=== PATIENT | male | born 1995 | race Caucasian/White ===

== ENCOUNTER 2020-01-10 21:26 | Emergency (ER) | payer OTHER ==
[~2020-01-10] VITALS: Ht 167.6 cm; Wt 99.1 kg
[2020-01-10 22:00] LABS: BASO # 0.1 10^3/uL (0.0-0.2); BASO % 0.6 % (0.0-1.0); EOS # 0.1 10^3/uL (0.0-0.5); EOS % 0.8 % (0.0-3.0); HEMATOCRIT 43.3 % (42.0-52.0); HEMOGLOBIN 14.9 g/dl (13.5-17.5); LYMPH % 27.7 % (24.0-44.0); MEAN CORPUSCULAR HEMOGLOBIN 28.2 pg (27.0-33.0); MEAN CORPUSCULAR HGB CONC 34.4 g/dl (32.0-36.5); MEAN CORPUSCULAR VOLUME 81.9 fl (80.0-96.0); MONO # 0.7 10^3/uL (0.0-0.8); MONO % 6.3 % (0.0-5.0); NEUTROPHILS # 6.9 10^3/uL (1.5-8.5); NEUTROPHILS % 63.8 % (36.0-66.0); PLATELET COUNT, AUTOMATED 302 10^3/uL (150-450); RED BLOOD COUNT 5.29 10^6/uL (4.30-6.10); WHITE BLOOD COUNT 10.9 10^3/uL (4.0-10.0)
[2020-01-10] MEDS ORDERED: KETOROLAC 30 MG/ML 1ML VIAL IV ONE (22:00)
[2020-01-10 22:25] LABS: ALBUMIN 4.2 GM/DL (3.2-5.2); ALT/SGPT 35 U/L (12-78); BILIRUBIN,DIRECT 0.1 MG/DL (0.0-0.2); BILIRUBIN,TOTAL 0.5 MG/DL (0.2-1.0); BLOOD UREA NITROGEN 20 MG/DL (7-18); CALCIUM LEVEL 9.1 MG/DL (8.5-10.1); CARBON DIOXIDE LEVEL 28 MEQ/L (21-32); CHLORIDE LEVEL 104 MEQ/L (98-107); CREATININE FOR GFR 1.31 MG/DL (0.70-1.30); GLOMERULAR FILTRATION RATE > 60.0 (>60); GLUCOSE, FASTING 103 MG/DL (70-100); LIPASE 66 U/L (73-393); POTASSIUM SERUM 3.7 MEQ/L (3.5-5.1); SODIUM LEVEL 139 MEQ/L (136-145); TOTAL PROTEIN 7.9 GM/DL (6.4-8.2)
--- NOTE | 2020-01-10 23:18 | REPVR ---
PROCEDURE INFORMATION: Exam: US Pelvis Limited, Male Exam date and time: 01/10/2020 11:06 PM Age: 24 years old Clinical indication: Pelvic pain; Additional info: R/O hernia TECHNIQUE: Imaging protocol: Real-time pelvic ultrasound with image documentation. COMPARISON: No relevant prior studies available. FINDINGS: Soft tissues: No abnormal soft tissue masses. No evidence of bowel hernia. No soft tissue collection. IMPRESSION: No hernia evident. Electronically signed by: Jesus Griffith On 01/10/2020 23:17:50 PM
--- NOTE | 2020-01-10 23:27 | REPVR ---
PROCEDURE INFORMATION: Exam: US Scrotum Exam date and time: 01/10/2020 11:06 PM Age: 24 years old Clinical indication: Scrotum pain; Additional info: Scrotal tenderness, suprapubic pain TECHNIQUE: Imaging protocol: Real-time ultrasound of the scrotum and contents with color Doppler and image documentation. COMPARISON: No relevant prior studies available. FINDINGS: Right testicle: Right testicle measures 4.5 x 2.1 x 3.1 cm. Normal vascular flow in the right testicle. No masses. There is less than 5 microlithiasis per view. Left testicle: Left testicle measures 4.4 x 2.0 x 2.7 cm. Normal vascular flow in the right testicle. No masses. There is less than 5 microlithiasis per view. Epididymides: Normal. Scrotum: Normal. IMPRESSION: 1. No evidence of testicular torsion or orchitis. 2. Mild microlithiasis. COMMENTS: For testicular microlithiasis, in the absence of any other risk factors for testicular cancer (e.g., personal history of testicular cancer, a father or brother with testicular cancer, history of cryptorchidism or maldescent, testicular atrophy, or other risk factors), no further imaging or biochemical follow-up is necessary; all that is recommended is routine monthly testicular self-examination. However, if the patient has risk factors for testicular cancer, referral to a urologist for evaluation and determination of an optimal follow-up strategy is recommended. Electronically signed by: Jesus Griffith On 01/10/2020 23:26:41 PM
[2020-01-11 00:22] VITALS: BP 130/68
[2020-01-11 00:58] LABS: HEMOGLOBIN A1c 5.8 %
[2020-01-11 01:56] LABS: CHLAMYDIA DNA AMPLIFICATION NEGATIVE (NEGATIVE); GC DNA AMPLIFICATION NEGATIVE (NEGATIVE)
== END 2020-01-11 00:23 | disposition home or self-care (01) ==
LOC: M ED 21:26
DX: J02.9 Acute pharyngitis, unspecified (principal); R79.9 Abnormal finding of blood chemistry, unspecified; N50.89 Other specified disorders of the male genital organs
CPT/HCPCS: 76857; 76870; 80048; 80076; 81001; 83036; 83690; 85025; 87661; 87880; 96374; 99284; J1885